=== PATIENT | female | born 1990 | race Caucasian/White ===

== ENCOUNTER 2019-10-07 09:52 | Emergency (ER) | payer OTHER ==
[~2019-10-07] VITALS: Ht 160 cm; Wt 71.7 kg
[~2019-10-07 09:52] MED LIST: PERCOCET 5/3251 TAB PO
[2019-10-07] MEDS ORDERED: PRENATAL + DHA1 EAC1 (10:39)
== END 2019-10-07 14:38 | disposition home or self-care (01) ==
LOC: ER 09:52
DX: O26.851 Spotting complicating pregnancy, first trimester (principal); O36.80X1 Pregnancy with inconclusive fetal viability, fetus 1

== ENCOUNTER → 2019-12-05 | Outpatient (CLI) | payer OTHER ==
[~2019-12-05] MED LIST changes: +PRENATAL + DHA1 EAC1
== END | disposition home or self-care (01) ==
LOC: PRENATAL 12-02 09:00
DX: O35.3XX1 Maternal care for (suspected) damage to fetus from viral disease in mother, fetus 1 (principal); O34.211 Maternal care for low transverse scar from previous cesarean delivery; O28.3 Abnormal ultrasonic finding on antenatal screening of mother

== ENCOUNTER → 2020-01-23 | Outpatient (CLI) | payer OTHER | END | disposition home or self-care (01) | LOC: PRENATAL 12:06 | PROVIDERS: ATTEND Specialist | DX: O26.842 Uterine size-date discrepancy, second trimester (principal); O60.02 Preterm labor without delivery, second trimester; O34.211 Maternal care for low transverse scar from previous cesarean delivery ==

== ENCOUNTER 2020-03-11 10:53 | Outpatient (CLI) | payer OTHER | END 2020-03-11 17:09 | disposition home or self-care (01) | LOC: OBS/DEL 10:53 | PROVIDERS: ATTEND Specialist | DX: O76 Abnormality in fetal heart rate and rhythm complicating labor and delivery (principal) ==

== ENCOUNTER 2020-04-10 07:09 | Inpatient (IN) | payer OTHER ==
[~2020-04-10] VITALS: Ht 160 cm; Wt 3.2 kg
[2020-04-15] MEDS ORDERED: IBUPROFEN800 MG PO (10:07)
[2020-04-15] MEDS ORDERED: CODE1TAB37 PO (10:07)
== END 2020-04-15 10:23 | disposition home or self-care (01) | DRG 788 ==
LOC: O/R 04-13 05:30 → OB/GYN 04-13 05:30 → LDR 04-13 07:15 → OB/GYN 04-13 10:21
PROVIDERS: ADMIT Specialist; ATTEND Specialist
PROC: 4A1HXFZ Monitoring of Products of Conception, Cardiac Rhythm, External Approach (ICD-10-PCS; 2020-04-13)
PROC: 3E033VJ Introduction of Other Hormone into Peripheral Vein, Percutaneous Approach (ICD-10-PCS; 2020-04-13)
PROC: 10D00Z1 Extraction of Products of Conception, Low, Open Approach (ICD-10-PCS; principal; 2020-04-13 07:15)
DX: O34.211 Maternal care for low transverse scar from previous cesarean delivery (principal); Z3A.39 39 weeks gestation of pregnancy; Z37.0 Single live birth

== ENCOUNTER 2023-11-18 08:54 | Outpatient (CLI) | payer OTHER ==
[~2023-11-18 08:54] MED LIST changes: +CODE1TAB37 PO; +IBUPROFEN800 MG PO
== END 2023-11-18 08:58 | disposition home or self-care (01) ==
LOC: PRENATAL 08:54
PROVIDERS: ATTEND Obstetrics & Gynecology Maternal & Fetal Medicine
DX: O36.80X0 Pregnancy with inconclusive fetal viability, not applicable or unspecified (principal); Z3A.12 12 weeks gestation of pregnancy

== ENCOUNTER 2024-05-12 10:15 | Inpatient (IN) | payer OTHER ==
[~2024-05-12] VITALS: Ht 160 cm; Wt 84.4 kg
[2024-05-12 10:23] LABS: URINE APPEARANCE Clear; URINE BILIRRUBIN Negative (NEGATIVE); URINE BLOOD Negative; URINE COLOR Yellow; URINE KETONE Trace (NEGATIVE); URINE LEUKOCYTE Negative; URINE NITRATE Negative; URINE PROTEIN Trace (NEGATIVE); URINE UROBILINOGEN 0.2 E.U./dl
[2024-05-12 10:24] LABS: URINE BACTERIA 1646.6 uL (0.0-1933); URINE EPITHELIAL CELLS 50.2 uL (0.0-38.8); URINE RBC 2.9 uL (0.0-20.8); URINE WBC 27.2 uL (0.0-23.2)
[2024-05-12 10:26] LABS: URINE CAST 0.45 uL (0.0-1.40); URINE GLUCOSE >=1000 MG/DL (NEGATIVE)
[2024-05-12 10:30] LABS: HEMATOCRIT 36.3 % (36.0-45.00); HEMOGLOBIN 12.6 g/dL (12.0-15.00); MEAN CELL VOLUME 82.2 fL (80.00-100.00); MEAN CORPUSCULAR HEMOGLOBIN 28.5 pg (27.00-32.0); MEAN CORPUSCULAR HGB CONC 34.7 g/dl (32.0-36.0); PLATELET COUNT 250 K/uL (150-450); RED BLOOD COUNT 4.42 M/uL (4.00-6.00); RED CELL DISTRIBUTION WIDTH 12.9 % (11.5-14.5)
[2024-05-12 11:07] LABS: INR 0.97; PARTIAL THROMBOPLASTIN TIME 32.3 SECONDS (22.0-34.0); PROTHROMBIN TIME 10.6 SECONDS (9.0-11.5)
[2024-05-12 11:18] LABS: ALBUMIN 2.5 gm/dL (3.4-5.0); BILIRUBIN TOTAL 0.73 mg/dL (0.3-1.2); CALCIUM 8.8 mg/dL (8.5-10.1); CREATININE SERUM 0.54 mg/dL (0.55-1.02); GFR 129.23; GLOBULINA 3.7 G/DL (2.4-3.5); POTASSIUM 3.92 mEq/L (3.5-5.1); TOTAL PROTEIN 6.2 gm/dL (6.4-8.2)
[2024-05-18] MEDS ORDERED: AMPICILLIN TRI500 MG PO (22:19)
[2024-05-20 05:38] VITALS: BP 115/76
[2024-05-20] MEDS ORDERED: MEPERIDINE HCL/PF 50 MG/ML VIAL IM PRN (09:15)
[2024-05-20] MEDS ORDERED: PROMETHAZINE HCL 50 MG/ML AMPUL IM PRN (09:15)
[2024-05-20] MEDS ORDERED: RINGERS SOLUTION,LACTATED 1,000 ML IV SCH (09:15)
[2024-05-20] MEDS ORDERED: MORPHINE SULFATE 4 MG/ML VIAL IV ONE ×2 (10:00→10:30)
[2024-05-20 14:00] VITALS: BP 133/76
[2024-05-20] MEDS ORDERED: CEFAZOLIN SODIUM 1,000 MG VIAL IV SCH (14:00)
[2024-05-20 16:00] VITALS: BP 129/80
[2024-05-20] MEDS ORDERED: OXYTOCIN 20 UNITS/1000ML RL PIGGYBAG IV ONE (19:15)
[2024-05-20] MEDS ORDERED: ERYTHROMYCIN BASE OPHT 1GM EACH TUBE OP ONE (19:15)
[2024-05-20] MEDS ORDERED: CEFAZOLIN SODIUM 1,000 MG VIAL IV ONE (19:15)
[2024-05-21] VITALS: BP 127/85
[2024-05-21 01:58] LABS: HEMATOCRIT 36.1 % (36.0-45.00); HEMOGLOBIN 12.2 g/dL (12.0-15.00); MEAN CELL VOLUME 82.5 fL (80.00-100.00); MEAN CORPUSCULAR HGB CONC 33.9 g/dl (32.0-36.0); PLATELET COUNT 248 K/uL (150-450); RED BLOOD COUNT 4.38 M/uL (4.00-6.00); RED CELL DISTRIBUTION WIDTH 13.2 % (11.5-14.5)
[2024-05-21 04:30] VITALS: BP 108/72
[2024-05-21 08:21] VITALS: BP 120/74
[2024-05-21] MEDS ORDERED: OxyCODONE HCL/APAP UD (PERCOCET) PO PRN (10:00)
[2024-05-21] MEDS ORDERED: ACETAMINOPHEN 500 MG GEL..CAP PO PRN (10:00)
[2024-05-21 15:53] VITALS: BP 134/69
[2024-05-22] VITALS: BP 118/76
[2024-05-22 09:29] VITALS: BP 113/72
[2024-05-22 15:39] VITALS: BP 103/68; BP 120/76
[2024-05-23 01:00] VITALS: BP 124/75
[2024-05-23] MEDS ORDERED: IBUPROFEN800 MG PO (07:57)
[2024-05-23 09:00] VITALS: BP 138/85
== END 2024-05-23 14:13 | disposition home or self-care (01) | DRG 785 ==
LOC: OB/GYN 05-20 06:58 → O/R 05-20 06:58 → OB/GYN 05-20 07:00
PROVIDERS: ADMIT Specialist; ATTEND Specialist
PROC: 0UB70ZZ Excision of Bilateral Fallopian Tubes, Open Approach (ICD-10-PCS; 2024-05-20)
PROC: 4A1HXCZ Monitoring of Products of Conception, Cardiac Rate, External Approach (ICD-10-PCS; 2024-05-20)
PROC: 10D00Z1 Extraction of Products of Conception, Low, Open Approach (ICD-10-PCS; principal; 2024-05-20 07:00)
DX: O34.211 Maternal care for low transverse scar from previous cesarean delivery (principal); Z30.2 Encounter for sterilization; Z37.0 Single live birth; Z20.822 Contact with and (suspected) exposure to COVID-19; Z3A.38 38 weeks gestation of pregnancy

== ENCOUNTER 2024-05-18 21:24 | Outpatient (CLI) | payer OTHER ==
[~2024-05-18] VITALS: Ht 160 cm; Wt 86.2 kg
[2024-05-18 20:31] VITALS: BP 119/75; O2SAT 99
[2024-05-18] MEDS ORDERED: RINGERS SOLUTION,LACTATED 1,000 ML IV SCH (22:15)
[2024-05-18] MEDS ORDERED: AMPICILLIN TRI500 MG PO (22:19)
[2024-05-18 23:07] LABS: HEMATOCRIT 33.6 % (36.0-45.00); HEMOGLOBIN 11.4 g/dL (12.0-15.00); MEAN CELL VOLUME 82.1 fL (80.00-100.00); MEAN CORPUSCULAR HEMOGLOBIN 27.8 pg (27.00-32.0); MEAN CORPUSCULAR HGB CONC 33.8 g/dl (32.0-36.0); PLATELET COUNT 281 K/uL (150-450); RED BLOOD COUNT 4.09 M/uL (4.00-6.00); RED CELL DISTRIBUTION WIDTH 13.2 % (11.5-14.5)
[2024-05-18 23:10] VITALS: BP 101/66; O2SAT 99
[2024-05-19 04:18] VITALS: BP 109/69; O2SAT 99
[2024-05-19 07:25] VITALS: BP 113/74
[2024-05-19 07:58] VITALS: BP 113/74
== END 2024-05-19 08:19 | disposition home or self-care (01) ==
LOC: OBS/DEL 21:24
PROVIDERS: ATTEND Specialist
DX: O26.893 Other specified pregnancy related conditions, third trimester (principal); Z3A.38 38 weeks gestation of pregnancy